=== PATIENT | female | born 1950 | race Native Hawaiian/Other Pacific Islander ===

== ENCOUNTER 2017-06-22 12:45 | Outpatient (CLI) | payer OTHER | END 2017-06-22 19:22 | disposition home or self-care (01) | LOC: RAD 12:45 | DX: M25.562 Pain in left knee (principal) ==

== ENCOUNTER 2022-07-18 08:48 | Outpatient (CLI) | payer OTHER | END 2022-07-18 20:14 | disposition home or self-care (01) | LOC: US 08:48 | PROVIDERS: ATTEND Physician Assistant | DX: N28.1 Cyst of kidney, acquired (principal) ==

== ENCOUNTER 2022-09-19 08:29 | Outpatient (CLI) | payer OTHER | END 2022-09-19 18:55 | disposition home or self-care (01) | LOC: MRI 08:29 | PROVIDERS: ATTEND Physician Assistant | DX: R26.89 Other abnormalities of gait and mobility (principal) ==

== ENCOUNTER 2023-01-29 08:08 | Outpatient (CLI) | payer OTHER | END 2023-01-29 19:43 | disposition home or self-care (01) | LOC: MRI 08:08 | PROVIDERS: ATTEND Physician Assistant | DX: S82.032 Displaced transverse fracture of left patella (principal); Y92.89 Other specified places as the place of occurrence of the external cause ==